=== PATIENT | male | born 1955 | race Caucasian/White ===

== ENCOUNTER → 2024-01-03 11:01 | Outpatient (REF) | payer OTHER, SELFPAY ==
[2024-01-05 16:01] LABS: PSA Total 7.3 ng/mL (0.0-4.0)
== END ==
LOC: REG 11:01
PROVIDERS: ATTENDING PHYSICIAN Surgery; FAMILY PHYSICIAN Family Medicine
DX: R97.20 Elevated prostate specific antigen [PSA] (principal)
CPT/HCPCS: 36415; 84153; 84154

== ENCOUNTER → 2024-03-28 10:41 | Outpatient (REF) | payer OTHER, SELFPAY | LOC: MRI 3T 10:41 | PROVIDERS: ATTENDING PHYSICIAN Surgery; FAMILY PHYSICIAN Family Medicine | DX: R97.20 Elevated prostate specific antigen [PSA] (principal) | CPT/HCPCS: 72197; A9575 ==

== ENCOUNTER → 2024-08-01 10:20 | Outpatient (REF) | payer OTHER, SELFPAY ==
[2024-08-01 12:04] LABS: PSA, Total - Diagnostic 7.04 ng/ml (0.0-4.0)
== END ==
LOC: REG 10:20
PROVIDERS: ATTENDING PHYSICIAN Surgery; FAMILY PHYSICIAN Family Medicine
DX: R97.20 Elevated prostate specific antigen [PSA] (principal)
CPT/HCPCS: 36415; 84153

== ENCOUNTER → 2024-10-30 07:34 | Outpatient (REF) | payer OTHER, SELFPAY ==
[2024-10-30 08:24] LABS: % Basophils 1.3 % (0-2); % Eosinophils 2.8 % (0-6); % Immature Granulocytes 0.3 % (0-0.5); % Lymphocytes 26.4 % (20.5-51.1); % Monocytes 9.6 % (1.7-9.3); % Neutrophils 59.6 % (42.2-75.2); Absolute Basophils 0.1 10^3/uL (0-0.2); Absolute Eosinophils 0.2 10^3/uL (0-0.7); Absolute Lymphocytes 1.6 10^3/uL (1.2-3.4); Absolute Monocytes 0.6 10^3/uL (0.1-0.6); Absolute Neutrophils 3.6 10^3/uL (1.4-6.5); Hematocrit 44.6 % (39.0-52.0); Hemoglobin 14.8 g/dL (13.0-18.0); Mean Corp Hgb Conc. 33.2 g/dL (33.0-37.0); Mean Corpuscular Hgb 30.8 pg (27.0-31.0); Mean Corpuscular Volume 92.7 fL (80.0-94.0); Mean Platelet Volume 12.9 fL (7.4-10.4); Nucleated Red Blood Cells % 0 % (-); Platelet Count 162 10^3/uL (130-400); Red Blood Cell Count 4.81 10^6/uL (4.70-6.10); Red Cell Dist. Width 12.6 % (11.5-14.5); White Blood Cell Count 6.1 10^3/uL (4.8-10.8)
[2024-10-30 09:17] LABS: ALT (SGPT) 18 U/L (0-50); AST (SGOT) 26 U/L (17-59); Albumin 4.6 g/dl (3.5-5.0); Alkaline Phosphatase 50 U/L (38-126); Blood Urea Nitrogen 15 mg/dl (9-20); Calcium 9.1 mg/dl (8.4-10.2); Carbon Dioxide 28 mmol/L (22-30); Chloride 105 mmol/L (98-107); Glucose 94 mg/dl (70-99); HDL Cholesterol 54 mg/dl; LDL Cholesterol, Calculated 64 mg/dl; Potassium 4.2 mmol/L (3.5-5.1); Sodium 142 mmol/L (135-145); Total Bilirubin 1.8 mg/dl (0.2-1.3); Total Cholesterol 130 mg/dl (50-199); Total Protein 7.2 g/dl (6.3-8.2); Triglyceride 64 mg/dl (10-149); Very Low Density Lipoprotein 12 mg/dl (0-30); eGFR > 60.00
[2024-10-30 09:40] LABS: TSH Reflex To Free T4 2.68 uIU/ml (0.47-4.68)
== END ==
LOC: REG 07:34
PROVIDERS: ATTENDING PHYSICIAN Registered Nurse; FAMILY PHYSICIAN Family Medicine
DX: R39.9 Unspecified symptoms and signs involving the genitourinary system (principal); E78.5 Hyperlipidemia, unspecified
CPT/HCPCS: 36415; 80053; 80061; 84443; 85025

== ENCOUNTER → 2025-01-05 12:25 | Outpatient (REF) | payer OTHER, SELFPAY | LOC: REG 12:25 | PROVIDERS: ATTENDING PHYSICIAN Surgery; FAMILY PHYSICIAN Family Medicine | DX: R97.20 Elevated prostate specific antigen [PSA] (principal) | CPT/HCPCS: 36415; 84153; 84154 ==

== ENCOUNTER 2025-07-07 11:34 | Emergency (ER) | payer OTHER, SELFPAY ==
[2025-07-07 11:39] VITALS: BP 137/75
[2025-07-07 12:25] LABS: Hematocrit 47.0 % (39.0-52.0); Hemoglobin 14.9 g/dL (13.0-18.0); Mean Corp Hgb Conc. 31.7 g/dL (33.0-37.0); Mean Corpuscular Volume 94.2 fL (80.0-94.0); Nucleated Red Blood Cells % 0 % (-); Platelet Count 154 10^3/uL (130-400); Red Cell Dist. Width 12.5 % (11.5-14.5)
[2025-07-07 12:42] LABS: ALT (SGPT) 18 U/L (0-50); AST (SGOT) 22 U/L (17-59); Albumin 4.6 g/dl (3.5-5.0); Alkaline Phosphatase 46 U/L (38-126); Blood Urea Nitrogen 10 mg/dl (9-20); Calcium 9.5 mg/dl (8.4-10.2); Carbon Dioxide 24 mmol/L (22-30); Chloride 108 mmol/L (98-107); Glucose 96 mg/dl (70-99); Potassium 4.2 mmol/L (3.5-5.1); Sodium 137 mmol/L (135-145); Total Protein 7.5 g/dl (6.3-8.2); eGFR > 60.00
--- NOTE | 2025-07-07 13:38 | ED.GENMED ---
History of Present Illness
General
Chief Complaint: Seizure
Time Seen by Provider: 07/07/25 13:38
History of Present Illness
History of Present Illness:
FOCUSED PAST MEDICAL HISTORY
- Hyperlipidemia
REVIEW OF OLD RECORDS
- Patient had colonoscopy in 2023
Note:
CHIEF COMPLAINT(S)
Episodes of confusion, left hand shaking, and unusual fatigue.
HISTORY OF PRESENT ILLNESS
The patient is a 69-year-old male who experienced what he initially thought was severe indigestion, potentially due to excessive garlic consumption. Later that evening, around 10:30 PM, as he was preparing for bed, he experienced a sudden onset of
feeling faint. This sensation subsided after he took an antacid. Shortly thereafter, while sitting in a chair, he appeared to lose awareness temporarily, exhibiting a staring gaze and involuntary shaking of the left hand. According to his spouse,
during this episode, he did not respond verbally for approximately 10 seconds and seemed disoriented. The patient reported he felt as though he had fallen asleep during this episode. Upon recovery, he was able to proceed to bed, after which he had
an unusual urgent bowel movement. He slept normally afterward but reported feeling fatigued the following morning.
PAST MEDICAL AND SURIGICAL HISTORY
The patient mentioned taking a statin pill.
ADDITIONAL HISTORY OBTAINED FROM SOURCES OTHER THAN THE PATIENT
According to the patients spouse, he exhibited uncharacteristic behavior, appeared catatonic, and did not recognize his spouse during the episode. The witness described the patients left hand shaking significantly and stated he was unresponsive for
a brief duration.
SOCIAL HISTORY
The patient reported no alcohol use.
MEDICATIONS
Statin (specific pill not identified).
REVIEW OF SYSTEMS
- Neurological: Brief loss of awareness, left hand shaking.
- Gastrointestinal: Recent bowel movement following episode; no abdominal pain reported.
- General: Fatigue the day following the episode.
PHYSICAL EXAM
General: Alert, no acute distress. The patient is currently very well-appearing
Skin: Warm, dry.
Head: Normocephalic, atraumatic.
Neck: Supple, trachea midline.
Eye, Ears, Nose, Mouth, and Throat: Oral mucosa moist.
Cardiovascular: Normal peripheral perfusion, no edema.
Respiratory: Respirations are non-labored.
Gastrointestinal: Abdomen nondistended.
Back: Normal range of motion, normal alignment.
Musculoskeletal: Normal range of motion, normal strength.
Neurological: Alert and oriented to person, place, time, and situation, no focal neurological deficit observed. No motor nor sensory deficits, good coordination
Psychiatric: Cooperative, appropriate mood and affect.
PROBLEM LIST
Acute:
- Confusion and potential loss of consciousness
- Left hand tremor
- Fatigue
- Unusual bowel movement urgency
PLAN
1. Conduct cardiac blood work, including troponin levels, to rule out cardiac causes.
2. Perform a computed tomography scan of the brain to exclude any organic causes for the neurological symptoms.
3. Monitor the patient�s neurological status and symptoms for any recurrence or additional episodes.
DIFFERENTIAL DIAGNOSIS
The Differential Diagnosis includes, in no particular order and is not limited to:
1. Transient Ischemic Attack
2. New-onset Seizure
3. Syncope
4. Cardiac Arrhythmia
5. Hypoglycemia
6. Stroke
7. Vasovagal Episode
8. Medication Side Effects
9. Anxiety Attack
10. Orthostatic Hypotension
RADIOLOGY
- CAT scan of the brain shows no acute abnormality
EKG
- Sinus, right bundle branch block, no acute abnormality
LABS
- CBC normal, chemistries unremarkable 70
UPDATE
-SUMMARY OF ENCOUNTER
The patient, a 69-year-old male, presented to the emergency department with episodes of confusion, left hand shaking, and unusual fatigue. Initial concerns included potential cardiac or neurological causes, given the symptoms of transient loss of
awareness and hand tremor. Cardiac blood work, including troponin levels, was performed to exclude cardiac causes, and a CT scan of the brain was planned to evaluate for neurological issues. Despite the tests, no acute or definitive cause was
identified. The patient appeared in good condition at the time of discharge, and his vital signs were stable. The decision was made to discharge the patient with advice for close outpatient follow-up.
DISPOSITION
Discharge.
ASSESSMENT
The symptoms of transient confusion, hand tremor, and fatigue remain unexplained despite negative cardiac workup. Possible considerations include transient ischemic attack, new-onset seizure, syncope, or medication side effects.
PLAN
The plan includes follow-up with a primary care physician or neurologist for further evaluation to explore potential neurological causes such as seizure activity or transient ischemic attack. Monitoring for any recurrence of symptoms is advised.
INDEPENDENT REVIEW OF LABS AND INTERPRETATION OF TESTS
My independent review of cardiac blood work is normal.
MEDICAL DECISION MAKING
-Complexity of Data Reviewed: Chronic conditions affecting care: The patient mentions they are on a statin. Differential Diagnosis includes transient ischemic attack, new-onset seizure, syncope, cardiac arrhythmia, hypoglycemia, stroke, vasovagal
episode, medication side effects, anxiety attack, orthostatic hypotension.
-Data:
Category 1:
Reviewed cardiac blood work, which returned normal, indicating no acute cardiac event.
Category 2:
Clinical information was obtained from an independent historian, specifically the patients spouse, who reported the unresponsive state and left hand shaking during the episode.
-Risk:
Consideration of Admission/Observation: Escalation of care including admission/observation was considered given the complexity and risk of the patients presenting complaint, exam findings, and their underlying comorbidities. However, ultimately, I
feel the patient is safe for outpatient management with close follow-up. Reasoning: Work-up reassuring, does not reveal any acute life/organ-threatening processes; patients symptoms well controlled upon reevaluation, reexamination is reassuring,
vitals are stable, patient agreeable with discharge, and reliable for follow-up.
DIAGNOSIS
- Near syncope/syncope
- Tremor, R25.1
- Fatigue, R53.83
Past History
Past History
ED Past Medical History: None
ED Past Surgical History: None
Patient has exhibited threatening behavior?: No
Social History
Tobacco: Non-smoker
Personal:
Living: with family
Employment: Retired (Former [employer])
Phy Exam
Physical Exam
Physical Exam:
See HPI
Course
Orders/Labs/Results
Orders:
Orders
07/07/25 11:46
Electrocardiogram (*1) Urgent
Reason for Study: Syncope
EKG- Treatment ONCE
07/07/25 11:59
CMP [Comprehensive Metabolic Panel] Urgent
Complete Blood Count/With Diff Urgent
07/07/25 13:46
CT Head W/o Iv Contrast Urgent
Comment:
Reason For Exam: 1st time seizure like activity
07/07/25 13:53
Troponin I Urgent
Abnormal Lab Results
07/07/25
11:59
MCV 94.2 H fL
(80.0-94.0)
MCHC 31.7 L g/dL
(33.0-37.0)
MPV 12.7 H fL
(7.4-10.4)
Monocytes % 9.9 H %
(1.7-9.3)
Chloride 108 H mmol/L
(98-107)
Total Bilirubin 2.0 H mg/dl
(0.2-1.3)
07/07/25 11:59
07/07/25 11:59
Vital Signs
Initial and Last Documented VS:
Initial Vital Signs
Temp Pulse Resp BP Pulse Ox
36.8 C 71 18 137/75 96
07/07/25 11:39 07/07/25 11:39 07/07/25 11:39 07/07/25 11:39 07/07/25 11:39
Last Documented Vital Signs
Temp Pulse Resp BP Pulse Ox
36.8 C 61 16 137/61 98
07/07/25 11:39 07/07/25 14:15 07/07/25 14:15 07/07/25 14:00 07/07/25 14:15
*Pulse Oximetry
SaO2: 96
Oxygen Mode of Delivery: Room air
Patient hypoxic: no
*Critical Care Note
Total Time (30-74mins, 75-104mins- exclusive of procedures): Not Applicable
ED Attending Note
-
Portions of this chart may have been created with voice recognition software.� Occasional wrong word or��sound alike� substitutions may have occurred due to the inherent limitations of voice recognition software.
Discharge Plan
Departure
Prescriptions:
No Action
rosuvastatin 5 MG tablet
5 mg PO DAILY
polyethylene glycol 3350 17 GRAMS powder in packet
17 grams PO DAILYPRN PRN (Reason: constipation) Qty: 1 0RF
acetaminophen [Tylenol Extra Strength] 500 MG tablet
1,000 mg PO Q6HPRN PRN (Reason: mild pain) Qty: 1 0RF
ibuprofen 200 MG tablet
400 - 600 mg PO Q6HPRN PRN (Reason: moderate pain) Qty: 1 0RF
oxycodone 5 MG tablet
5 mg PO Q4HPRN PRN (Reason: breakthrough/severe pain) Qty: 5 0RF
Referrals:
Mary Oh MD [Family Provider, Family Practice]
Interventions
Interventions:
*Risk Screen - Suicide Last Done: 07/07/25 11:35
*General Assessment Last Done: 07/07/25 11:39
*Neglect/Abuse Screening Last Done: 07/07/25 14:34
*ED- Fall Risk Assessment Last Done: 07/07/25 13:51
*ED COVID-19 Vaccine History Last Done: 07/07/25 13:51
*ED Influenza Vaccine History Last Done: 07/07/25 13:51
ED- Cardiac Assessment Last Done: 07/07/25 13:44
ED- Neurological Assessment Last Done: 07/07/25 13:44
ED- Pulmonary Assessment Last Done: 07/07/25 13:44
Discharge Date and Time
Print Language: BENGALI
[2025-07-07 13:51] VITALS: BMI 27.2
[2025-07-07 14:00] VITALS: BP 137/61
[2025-07-07 15:24] LABS: Troponin I < 0.012 ng/ml
== END 2025-07-07 15:56 | disposition home or self-care (01) ==
LOC: EMR 11:34
PROVIDERS: Emergency Medicine; EMERGENCY PHYSICIAN Emergency Medicine; FAMILY PHYSICIAN Family Medicine
DX: R55 Syncope and collapse (principal); I45.10 Unspecified right bundle-branch block; E78.5 Hyperlipidemia, unspecified
CPT/HCPCS: 99284; 70450; 80053; 84484; 85025; 93005